=== PATIENT | male | born 1965 | race Caucasian/White ===

== ENCOUNTER 2020-05-29 12:10 | Emergency (ER) | payer MEDICARE ==
[~2020-05-29] VITALS: Ht 185.4 cm; Wt 84.1 kg
[2020-05-29 12:20] VITALS: BP 127/78
== END 2020-05-29 14:08 | disposition home or self-care (01) ==
LOC: ER 12:11
DX: S00.81XA Abrasion of other part of head, initial encounter (principal); M25.552 Pain in left hip; M79.672 Pain in left foot; H53.8 Other visual disturbances; R11.0 Nausea; E78.00 Pure hypercholesterolemia, unspecified; I10 Essential (primary) hypertension; E11.9 Type 2 diabetes mellitus without complications; F17.200 Nicotine dependence, unspecified, uncomplicated; Z98.890 Other specified postprocedural states; W18.39XA Other fall on same level, initial encounter; Y93.89 Activity, other specified; Y92.89 Other specified places as the place of occurrence of the external cause; Y99.8 Other external cause status
CPT/HCPCS: 70450; 73502; 73630; 99284